=== PATIENT | female | born 1995 | race Caucasian/White ===

== ENCOUNTER → 2016-03-12 | Outpatient (CLI) | payer OTHER ==
[~2016-03-12] MED LIST: ARMO150T4 PO; CYTM25 PO; HYDR-5688 PO; LEVO125T4 PO
[2016-03-12 17:57] LABS: ALT/SGPT 24 U/L (12-78); AST/SGOT 21 U/L (15-37); BLOOD UREA NITROGEN 13 mg/dl (7-18); BUN/CREATININE RATIO 12.6 (10-20); CALCIUM 8.7 mg/dl (8.5-10.1); CARBON DIOXIDE 27 mmol/L (21-32); CHLORIDE 104 mmol/L (98-107); GLUCOSE 73 mg/dl (70-99); POTASSIUM 3.7 mmol/L (3.5-5.1); SODIUM 140 mmol/L (136-145)
[2016-03-12 17:59] LABS: ALB/GLOB RATIO 1.4 (0.9-2); ALKALINE PHOSPHATASE 44 U/L (45-117); BASO % 0.6 %; BASO ABS # 0.03 K/uL (0-0.2); COMPLETE YES; EOS % 2.8 %; HEMATOCRIT 39.5 % (37-47); LYMPH % 36.8 %; LYMPH ABS # 1.83 K/uL (1.2-3.4); MEAN CELL VOLUME 89.6 fL (80-100); MEAN CORPUSCULAR HEMOGLOBIN 30.6 pg (25-34); MEAN CORPUSCULAR HGB CONC 34.2 g/dl (32-36); MEAN PLATELET VOLUME 10.8 fL (7.4-10.4); NEUT % 53.8 %; PLATELET COUNT 175 K/uL (130-400); RED BLOOD COUNT 4.41 M/uL (4.2-5.4); WHITE BLOOD COUNT 4.97 K/uL (4.8-10.8)
[2016-03-12 18:06] LABS: PROLACTIN 25.75 ng/mL
[2016-03-14 12:21] LABS: HERPES SIMPLEX AB IGG-1 4.33; HERPES SIMPLEX AB IGG-2 0.14
[2016-03-16 11:57] LABS: CHLAMYDIA TRACH RNA*** NOT DETECTED (NOT DETECTED); GC (NEIS GONORRHOEAE)RNA** NOT DETECTED (NOT DETECTED)
== END | disposition home or self-care (01) ==
LOC: C.LABMFLN 15:59
PROVIDERS: ATTEND Family Medicine
DX: Z72.51 High risk heterosexual behavior (principal); Z86.39 Personal history of other endocrine, nutritional and metabolic disease; E89.0 Postprocedural hypothyroidism; R51 Headache; D49.7 Neoplasm of unspecified behavior of endocrine glands and other parts of nervous system

== ENCOUNTER → 2016-05-08 | Outpatient (CLI) | payer OTHER | END | disposition home or self-care (01) | LOC: C.LABMFLN 12:13 | PROVIDERS: ATTEND Internal Medicine Endocrinology, Diabetes & Metabolism | DX: E89.0 Postprocedural hypothyroidism (principal) ==

== ENCOUNTER → 2016-06-18 | Outpatient (CLI) | payer OTHER ==
[~2016-06-18] MED LIST changes: -LEVO125T4 PO; +LEVO125T5 PO
[2016-06-18 18:28] LABS: THYROID STIMULATING HORMONE 0.441 uIu/ml (0.300-4.500)
[2016-06-20 13:45] LABS: THYROGLOBULIN <0.1 NG/ML (2.8-40.9)
== END | disposition home or self-care (01) ==
LOC: C.LABMFLN 07:49
PROVIDERS: ATTEND Internal Medicine Endocrinology, Diabetes & Metabolism
DX: C73 Malignant neoplasm of thyroid gland (principal); E89.0 Postprocedural hypothyroidism; R53.83 Other fatigue; R51 Headache; N64.3 Galactorrhea not associated with childbirth; E23.6 Other disorders of pituitary gland

== ENCOUNTER → 2016-07-24 | Outpatient (CLI) | payer OTHER ==
[2016-07-24 18:26] LABS: THYROID STIMULATING HORMONE 1.12 uIu/ml (0.300-4.500)
== END | disposition home or self-care (01) ==
LOC: C.LABMFLN 14:18
PROVIDERS: ATTEND Internal Medicine Endocrinology, Diabetes & Metabolism
DX: E89.0 Postprocedural hypothyroidism (principal)

== ENCOUNTER 2016-09-22 15:37 | Emergency (ER) | payer OTHER ==
[~2016-09-22] VITALS: Ht 182.9 cm; Wt 78.0 kg
[~2016-09-22 15:37] MED LIST changes: -ARMO150T4 PO; +LEVO125T4 PO; -LEVO125T5 PO
[2016-09-22 15:42] VITALS: TEMP 36.7; Ht 182.9 cm; Wt 78.0 kg
[2016-09-22] MEDS ORDERED: ARMO150T4 PO (15:55)
[2016-09-22] MEDS ORDERED: SODIUM CHLORIDE 0.9% 1000ML 1,000 ML IV STA (16:00)
--- NOTE | 2016-09-22 16:24 | EMERGENCY ROOM VISIT NOTE ---
History Report prepared by Tiana: Clementine Goodwin Under the Supervision of: Dr. Nissa Donahue M.D. First contact with patient: 15:43 Chief Complaint: NEURO SYMPTOMS Stated Complaint: MIGRAINE,BLEEDING EYE,BLURRY VISION,BRAIN TUMOR History of Present Illness The patient is a 20 year old female who presents to the Emergency Room with complaints of an episode of neurological symptoms occurring in the middle of the night last night. The patient has a pituitary adenoma that has grown over time. Her product picker told her that it might be due to her not taking her Levoxyl for her history of thyroid cancer. She is supposed to have a repeat MRI in 5 months to see if her pituitary adenoma has grown. The patient was drinking alcohol last night. She went to sleep and woke up with what she describes as "the worst headache of my life." She had bleeding from the corner of her right eye. The patient states that she wiped the blood off with a tissue and went back to sleep. Friend at bedside reports that the patient gets bloody noses multiple times per day. Patient reports that she has been having mood swings lately that she knows are irrational or inappropriate but she "just can't help it." She has a history of depression but is not taking any medication at this time. She rates her current pain as a 4/10 in severity. Source of History: patient, friend Onset: last night Position: other (neurological) Symptom Intensity: 4/10 Timing: other (episode) Associated Symptoms: + headache Note: Pt notes bleeding from right eye and frequent bloody noses. Review of Systems See HPI for pertinent positives & negatives. A total of 10 systems reviewed and were otherwise negative. Past Medical & Surgical Medical Problems: (1) Depression (2) History of blood transfusion (3) Hx of thyroid cancer (4) Malignant neoplasm of thyroid gland (5) Parotid mass (6) Personal history of other endocrine, metabolic, and immunity disorders Surgical Problems: (1) History of hysterectomy Family History Cancer Hypertension Seizures Social History Smoking Status: Current Every Day Smoker Alcohol Use: occasionally Marital Status: in relationship Housing Status: lives with family Occupation Status: unemployed Current/Historical Medications Scheduled Levothyroxine Sodium (Levothyroxine Sodium), 175 MCG PO DAILY Scheduled PRN Armodafinil (Nuvigil), 75 MG PO DAILY PRN for PRN Allergies Coded Allergies: No Known Allergies (Unverified , 09/22/16) Physical Exam Vital Signs Date Time Temp Pulse Resp B/P (MAP) Pulse Ox O2 Delivery O2 Flow Rate FiO2 09/22/16 18:36 55 16 106/74 97 09/22/16 17:27 55 16 106/74 97 Room Air 09/22/16 15:42 36.7 53 16 119/74 97 Room Air Physical Exam Vital signs reviewed. General: Well-appearing 20 year old female, in no significant distress. HEENT: No scleral icterus, PERRLA, neck supple. Atraumatic. Cardiovascular: Regular rate and rhythm, no extra sounds. Pulmonary: Clear to auscultation bilaterally, normal work of breathing. Abdomen: Soft, nontender, nondistended, positive bowel sounds. Musculoskeletal: Atraumatic, no peripheral edema. Neurologic: Patient awake alert and oriented x 3, full strength in all 4 extremities. Cranial nerves 2 through 12 grossly intact. Skin: Warm, dry, no rash Medical Decision & Procedures ER Provider Diagnostic Interpretation: Radiology results as stated below per my review and radiologist interpretation: HEAD WITHOUT CONTRAST (CT) CT DOSE: 537.48 mGy.cm HISTORY: Headaches CHIU, pit adenoma. TECHNIQUE: Multiaxial CT images of the head were performed without the use of intravenous contrast. A dose lowering technique was utilized adhering to the principles of ALARA. Comparison: None. Findings: The paranasal sinuses and mastoid air cells are clear. The calvarium and skull base are intact. The ventricles and sulci are within normal limits. There is no mass, hematoma, midline shift, or acute infarct. Impression: No acute intracranial abnormality. The above report was generated using voice recognition software. It may contain grammatical, syntax or spelling errors. Electronically signed by: Abner Qureshi M.D. 09/22/2016 4:45 PM Dictated Date/Time: 09/22/2016 4:45 PM Laboratory Results 09/22/16 16:20 Red Blood Count 4.58, Mean Corpuscular Volume 88.9, Mean Corpuscular Hemoglobin 29.7, Mean Corpuscular Hemoglobin Concent 33.4, Mean Platelet Volume 11.2, Neutrophils (%) (Auto) 63.3, Lymphocytes (%) (Auto) 25.3, Monocytes (%) (Auto) 8.5, Eosinophils (%) (Auto) 2.2, Basophils (%) (Auto) 0.5, Neutrophils # (Auto) 4.12, Lymphocytes # (Auto) 1.64, Monocytes # (Auto) 0.55, Eosinophils # (Auto) 0.14, Basophils # (Auto) 0.03 09/22/16 16:20 Test 09/22/16 16:20 White Blood Count 6.49 K/uL (4.8-10.8) Red Blood Count 4.58 M/uL (4.2-5.4) Hemoglobin 13.6 g/dL (12.0-16.0) Hematocrit 40.7 % (37-47) Mean Corpuscular Volume 88.9 fL (80-100) Mean Corpuscular Hemoglobin 29.7 pg (25-34) Mean Corpuscular Hemoglobin Concent 33.4 g/dl (32-36) Platelet Count 185 K/uL (130-400) Mean Platelet Volume 11.2 fL (7.4-10.4) Neutrophils (%) (Auto) 63.3 % Lymphocytes (%) (Auto) 25.3 % Monocytes (%) (Auto) 8.5 % Eosinophils (%) (Auto) 2.2 % Basophils (%) (Auto) 0.5 % Neutrophils # (Auto) 4.12 K/uL (1.4-6.5) Lymphocytes # (Auto) 1.64 K/uL (1.2-3.4) Monocytes # (Auto) 0.55 K/uL (0.11-0.59) Eosinophils # (Auto) 0.14 K/uL (0-0.5) Basophils # (Auto) 0.03 K/uL (0-0.2) RDW Standard Deviation 43.8 fL (36.4-46.3) RDW Coefficient of Variation 13.4 % (11.5-14.5) Immature Granulocyte % (Auto) 0.2 % Immature Granulocyte # (Auto) 0.01 K/uL (0.00-0.02) Urine Color YELLOW Urine Appearance CLEAR (CLEAR) Urine pH 7.5 (4.5-7.5) Urine Specific [place] 1.024 (1.000-1.030) Urine Protein NEG (NEG) Urine Glucose (UA) NEG (NEG) Urine Ketones NEG (NEG) Urine Occult Blood NEG (NEG) Urine Nitrite NEG (NEG) Urine Bilirubin NEG (NEG) Urine Urobilinogen NEG (NEG) Urine Leukocyte Esterase TRACE (NEG) Urine WBC (Auto) 1-5 /hpf (0-5) Urine RBC (Auto) 0-4 /hpf (0-4) Urine Hyaline Casts (Auto) 0 /lpf (0-5) Urine Epithelial Cells (Auto) >30 /lpf (0-5) Urine Bacteria (Auto) NEG (NEG) Anion Gap 7.0 mmol/L (3-11) Est Creatinine Clear Calc Drug Dose 107.0 ml/min Estimated GFR () 98.0 Estimated GFR (Non- 84.5 BUN/Creatinine Ratio 12.1 (10-20) Calcium Level 8.7 mg/dl (8.5-10.1) Magnesium Level 2.3 mg/dl (1.8-2.4) Total Bilirubin 0.5 mg/dl (0.2-1) Direct Bilirubin < 0.1 mg/dl (0-0.2) Aspartate Amino Transf (AST/SGOT) 18 U/L (15-37) Alanine Aminotransferase (ALT/SGPT) 23 U/L (12-78) Alkaline Phosphatase 47 U/L (45-117) Total Protein 7.8 gm/dl (6.4-8.2) Albumin 4.2 gm/dl (3.4-5.0) Thyroid Stimulating Hormone (TSH) 75.100 uIu/ml (0.300-4.500) Free Thyroxine 0.73 ng/dl (0.80-1.60) Free Triiodothyronine 1.88 pg/ml (2.30-4.20) Laboratory results per my review. Medications Administered Medications (Trade) Dose Ordered Sig/Marin Route Start Time Stop Time Status Last Admin Dose Admin Sodium Chloride 1,000 ml @ 999 mls/hr Q1H1M STAT IV 09/22/16 16:00 09/22/16 17:00 DC 09/22/16 16:30 999 MLS/HR ED Course 1543: Past medical records reviewed. The patient was evaluated in room C1B. A complete history and physical examination was performed. 1600: NSS 1000 ml @ 999 mls/hr IV 1830: I reassessed the patient at this time. She is feeling better and resting comfortably. I discussed the results and treatment plan with the patient. I answered all pertaining questions that she had. She expressed understanding and verbalized agreement. The patient will be discharged home. Medical Decision Differential diagnoses includes thrombocytopenia, eye trauma, subconjunctival hemorrhage, foreign body, intracranial hemorrhage, intracranial mass, metabolic abnormality, medication non-compliance, substance abuse. This patient was evaluated and appeared to be in no significant distress. IV access was obtained and laboratory work was drawn. The patient was placed on the school lunch monitor and found to be in a normal sinus rhythm. Head CT was obtained and is negative for acute intracranial abnormality. Patient's laboratory work reveals a TSH of 75. Free T3 and free T4 were added and are pending. The patient admits she has not been taking her thyroid medication as prescribed, she takes that once weekly, the entire weekly dose at once. The patient was strongly advised to take her medication as prescribed, once daily. She was advised to stop smoking and stop vaping. Patient was reassured regarding her findings. She was concerned about the IV bleeding however there is no eye injection, hemorrhage or irritation appreciated. There is no scratch noted to the eyelids. Patient's blood counts are normal. She was referred to an manager environmental if symptoms recur. She will return to the ER for worsening of symptoms or any medical concerns. Medication Reconcilliation Current Medication List: was personally reviewed by me Blood Pressure Screening Patient's blood pressure: Normal blood pressure Impression Primary Impression: Hypothyroidism Scribe Attestation The scribe's documentation has been prepared under my direction and personally reviewed by me in its entirety. I confirm that the note above accurately reflects all work, treatment, procedures, and medical decision making performed by me. Departure Information Dispostion Home / Self-Care Referrals Lillian Willoughby (PCP) Forms HOME CARE DOCUMENTATION FORM, IMPORTANT VISIT INFORMATION, WORK / SCHOOL INSTRUCTIONS Patient Instructions [facility] [employer] Additional Instructions Diagnosis: Hypothyroidism Please take your thyroid medication daily as prescribed. Stop smoking. Drink plenty of water, avoid excessive caffeine and alcohol. Follow-up with your primary care physician for reevaluation. Follow-up with your product picker for further management of your thyroid dysfunction. If your eye continues to bleed periodically, please see full eye evaluation by an manager environmental. Return to the emergency department for worsening of symptoms or any medical concerns. Problem Qualifiers Primary Impression: Hypothyroidism Hypothyroidism type: unspecified Qualified Codes: E03.9 - Hypothyroidism, unspecified
[2016-09-22 16:36] LABS: BASO % 0.5 %; BASO ABS # 0.03 K/uL (0-0.2); COMPLETE YES; EOS % 2.2 %; HEMATOCRIT 40.7 % (37-47); IG% 0.2 %; LYMPH % 25.3 %; LYMPH ABS # 1.64 K/uL (1.2-3.4); MEAN CELL VOLUME 88.9 fL (80-100); MEAN CORPUSCULAR HEMOGLOBIN 29.7 pg (25-34); MEAN CORPUSCULAR HGB CONC 33.4 g/dl (32-36); MEAN PLATELET VOLUME 11.2 fL (7.4-10.4); MONO % 8.5 %; NEUT % 63.3 %; PLATELET COUNT 185 K/uL (130-400); RED BLOOD COUNT 4.58 M/uL (4.2-5.4); WHITE BLOOD COUNT 6.49 K/uL (4.8-10.8)
[2016-09-22 16:42] LABS: MANUAL MICROSCOPIC REQUIRED? NO; REVIEW REQ? NO; URINE APPEARANCE CLEAR (CLEAR); URINE BILIRUBIN NEG (NEG); URINE COLOR YELLOW; URINE EPITHELIAL CELL AUTO >30 /lpf (0-5); URINE NITRITE NEG (NEG); URINE PH 7.5 (4.5-7.5); URINE SPECIFIC GRAVITY 1.024 (1.000-1.030); UROBILINOGEN NEG (NEG); ZZUR CULT IF INDIC CLEAN CATCH NO
--- NOTE | 2016-09-22 16:47 | DIAGNOSTIC IMAGING REPORT ---
HEAD WITHOUT CONTRAST (CT) CT DOSE: 537.48 mGy.cm HISTORY: Headaches CHIU, pit adenoma. TECHNIQUE: Multiaxial CT images of the head were performed without the use of intravenous contrast. A dose lowering technique was utilized adhering to the principles of ALARA. Comparison: None. Findings: The paranasal sinuses and mastoid air cells are clear. The calvarium and skull base are intact. The ventricles and sulci are within normal limits. There is no mass, hematoma, midline shift, or acute infarct. Impression: No acute intracranial abnormality. The above report was generated using voice recognition software. It may contain grammatical, syntax or spelling errors. Electronically signed by: Abner Qureshi M.D. 09/22/2016 4:45 PM Dictated Date/Time: 09/22/2016 4:45 PM
[2016-09-22 16:55] LABS: ALT/SGPT 23 U/L (12-78); BLOOD UREA NITROGEN 12 mg/dl (7-18); BUN/CREATININE RATIO 12.1 (10-20); CALCIUM 8.7 mg/dl (8.5-10.1); CARBON DIOXIDE 25 mmol/L (21-32); CHLORIDE 109 mmol/L (98-107); CREATININE 0.96 mg/dl (0.60-1.20); GLUCOSE 81 mg/dl (70-99); MAGNESIUM 2.3 mg/dl (1.8-2.4); POTASSIUM 3.6 mmol/L (3.5-5.1); SODIUM 141 mmol/L (136-145)
[2016-09-22 17:06] LABS: ALKALINE PHOSPHATASE 47 U/L (45-117); AST/SGOT 18 U/L (15-37)
[2016-09-22 18:36] VITALS: BP 106/74; PULSE 55; O2SAT 97
== END 2016-09-22 18:36 | disposition home or self-care (01) ==
LOC: C.EDB 15:40 → C.EDC 18:36
DX: E03.9 Hypothyroidism, unspecified (principal); D35.2 Benign neoplasm of pituitary gland; Z85.850 Personal history of malignant neoplasm of thyroid; F32.9 Major depressive disorder, single episode, unspecified; Z90.710 Acquired absence of both cervix and uterus; Z80.9 Family history of malignant neoplasm, unspecified; Z82.49 Family history of ischemic heart disease and other diseases of the circulatory system; Z82.0 Family history of epilepsy and other diseases of the nervous system; F17.210 Nicotine dependence, cigarettes, uncomplicated; Z79.899 Other long term (current) drug therapy

== ENCOUNTER → 2016-12-29 | Outpatient (CLI) | payer OTHER ==
[~2016-12-29] MED LIST changes: +ARMO150T4 PO; -CYTM25 PO; -HYDR-5688 PO; -LEVO125T4 PO; +LEVO125T5 PO
[2017-01-01 00:09] LABS: CHLAMYDIA TRACH RNA*** NOT DETECTED (NOT DETECTED); GC (NEIS GONORRHOEAE)RNA** NOT DETECTED (NOT DETECTED)
== END | disposition home or self-care (01) ==
LOC: C.LABSPEC 17:53
PROVIDERS: ATTEND Physician Assistant
DX: N93.9 Abnormal uterine and vaginal bleeding, unspecified (principal); R10.2 Pelvic and perineal pain

== ENCOUNTER → 2016-12-29 | Outpatient (CLI) | payer OTHER | END | disposition home or self-care (01) | LOC: C.PAPS 18:14 | PROVIDERS: ATTEND Physician Assistant | DX: R10.2 Pelvic and perineal pain (principal); N93.9 Abnormal uterine and vaginal bleeding, unspecified ==

== ENCOUNTER → 2017-05-18 | Outpatient (CLI) | payer OTHER | END | disposition home or self-care (01) | LOC: C.LABMFLN 09:25 | PROVIDERS: ATTEND Internal Medicine Endocrinology, Diabetes & Metabolism | DX: E89.0 Postprocedural hypothyroidism (principal) ==

== ENCOUNTER 2017-09-16 20:43 | Emergency (ER) | payer OTHER ==
[~2017-09-16] VITALS: Ht 182.9 cm; Wt 73.8 kg
[2017-09-16 20:45] VITALS: TEMP 36.7; Ht 182.9 cm; Wt 73.8 kg
[2017-09-16 21:05] VITALS: O2SAT 97
[2017-09-16] MEDS ORDERED: BENZONATATE 100MG CAP PO ONE (21:30)
[2017-09-16] MEDS ORDERED: ALBUTEROL HFA 8 GM INHALER INH ONE (21:30)
[2017-09-16] MEDS ORDERED: LEVO175T3 PO (21:33)
--- NOTE | 2017-09-16 21:48 | DIAGNOSTIC IMAGING REPORT ---
CHEST 2 VIEWS ROUTINE CLINICAL HISTORY: Cough, shortness of breath. COMPARISON STUDY: No previous studies for comparison. FINDINGS: The cardiac and mediastinal contours are normal. There is no evidence of focal pulmonary consolidation. There is no evidence of failure. No pleural effusions are visualized.[ There is a thoracolumbar scoliosis. IMPRESSION: No active disease in the chest. Electronically signed by: Giuseppe Ayers M.D. 09/16/2017 9:46 PM Dictated Date/Time: 09/16/2017 9:46 PM
[2017-09-16] MEDS ORDERED: BENZ100C18 PO (22:18)
[2017-09-16 22:32] VITALS: BP 113/75; PULSE 73; O2SAT 100
--- NOTE | 2017-09-16 22:47 | EMERGENCY ROOM VISIT NOTE ---
History Report prepared by Tiana: Keisha Parikh Under the Supervision of: Dr. Feliz Cooper M.D. First contact with patient: 21:07 Chief Complaint: RESPIRATORY PROBLEMS Stated Complaint: DIFFICULTY BREATHING, COUGHING History of Present Illness The patient is a 21 year old female who presents to the Emergency Room with complaints of intermittent episodes of coughing beginning 4 days ago. She notes she is coughing up some mucus, but no blood. The patient notes she had one episode of coughing a few weeks ago, which resolved after she drank something, and she did not start coughing again until 4 days ago. She notes throat pain that worsens with swallowing, making it difficult to eat. The patient denies SOB , abdominal pain, nausea, or vomiting. She states she is experiencing some CP following coughing episodes. The patient reports she has chronic headaches due to a pituitary adenoma. Source of History: patient Onset: 4 days ago Position: throat Quality: other (coughing) Timing: intermittent, other (episodic) Associated Symptoms: + chest pain (after coughing), No SOB, No nausea, No vomiting, No abdominal pain Note: Associated symptom: intermittent loss of voice Review of Systems See HPI for pertinent positives and negatives. A total of ten systems were reviewed and were otherwise negative. Past Medical & Surgical Medical Problems: (1) Depression (2) History of blood transfusion (3) Hx of thyroid cancer (4) Malignant neoplasm of thyroid gland (5) Parotid mass (6) Personal history of other endocrine, metabolic, and immunity disorders Surgical Problems: (1) History of hysterectomy Family History Cancer Hypertension Seizures Social History Smoking Status: Current Some Day Smoker (vape) Smokeless Tobacco Use: No Alcohol Use: occasionally Marital Status: in relationship Housing Status: lives with family Occupation Status: employed Current/Historical Medications Scheduled Levothyroxine Sodium (Levothyroxine Sodium), 175 MG PO DAILY Scheduled PRN Armodafinil (Nuvigil), 75 MG PO DAILY PRN for Narcolepsey Benzonatate (Tessalon Perles), 1 CAP PO TID PRN for Cough Allergies Coded Allergies: No Known Allergies (Unverified , 09/22/16) Physical Exam Vital Signs Date Time Temp Pulse Resp B/P (MAP) Pulse Ox O2 Delivery O2 Flow Rate FiO2 09/16/17 22:32 73 16 113/75 100 Room Air 09/16/17 21:07 75 8/1/18 21:05 97 Room Air 09/16/17 21:05 68 20 101/74 98 Room Air 09/16/17 20:45 36.7 97 20 99 Room Air Physical Exam GENERAL: Awake, alert, well-appearing, in no distress HENT: Normocephalic, atraumatic. Oropharynx unremarkable. No significant pharyngeal erythema or exudate. Uvula midline. No CITY MAGISTRATE noted. EYES: Normal conjunctiva. Sclera non-icteric. NECK: Supple. No nuchal rigidity. RESPIRATORY: Clear to auscultation. No wheezes. Normal respiratory effort. CARDIAC: Normal rate. Normal rhythm. Extremities warm and well perfused. GI: Soft, non-distended. No tenderness to palpation. No rebound or guarding. RECTAL: Deferred. MUSCULOSKELETAL: Atraumatic. Chest examination reveals no tenderness. LOWER EXTREMITIES: Calves are equal size bilaterally and non-tender. No edema NEURO: Normal sensorium. No sensory or motor deficits noted. No facial droop. SKIN: Warm and dry. No rash or jaundice noted. Medical Decision & Procedures ER Provider Diagnostic Interpretation: Radiology results as stated below per my review and radiologist interpretation: CHEST 2 VIEWS ROUTINE CLINICAL HISTORY: Cough, shortness of breath. COMPARISON STUDY: No previous studies for comparison. FINDINGS: The cardiac and mediastinal contours are normal. There is no evidence of focal pulmonary consolidation. There is no evidence of failure. No pleural effusions are visualized.[ There is a thoracolumbar scoliosis. IMPRESSION: No active disease in the chest. Electronically signed by: Giuseppe Ayers M.D. 09/16/2017 9:46 PM Dictated Date/Time: 09/16/2017 9:46 PM Laboratory Results Test 09/16/17 21:25 Monoscreen NEG (NEG) Medications Administered Medications (Trade) Dose Ordered Sig/Marin Route Start Time Stop Time Status Last Admin Dose Admin Albuterol (Ventolin Hfa Inhaler) 2 puffs NOW ONCE INH 09/16/17 21:30 09/16/17 21:31 DC 09/16/17 21:25 2 PUFFS Benzonatate (Tessalon Perles Cap) 100 mg NOW ONCE PO 09/16/17 21:30 09/16/17 21:31 DC 09/16/17 21:24 100 MG ED Course 2107: The patient was evaluated in room C5. A complete history and physical exam was performed. 2129: Ordered Benzonatate 100 mg PO, Albuterol 2 puffs INH. 2212: I reevaluated the patient. Discussed results and discharge instructions: she verbalized understanding and agreement. The patient is ready for discharge. Medical Decision Etiologies such as pneumonia, meningitis, GERD, allergic reaction, CITY MAGISTRATE, neck space infection, post-nasal drip, among other were entertained. Patient presents complaining of cough initially 2 weeks ago and then for the past 4 days consistently throughout the day. Slightly short of breath but PERC negative. Denies fevers. Some sore throat. No history of similar. Patient does vapor. No history of asthma reported. Well-appearing without evidence of peritonsillar abscess. Benign neck exam. Lungs are clear. X-ray to exclude pneumonia was sent along with strep and mono testing. X-ray unremarkable. Rapid strep negative given Tessalon Perles and albuterol with symptoms. Advised if continued would recommend PCP follow up. Medication Reconcilliation Current Medication List: was personally reviewed by me Blood Pressure Screening Patient's blood pressure: Normal blood pressure Blood pressure disposition: Did not require urgent referral Impression Primary Impression: Cough Scribe Attestation The scribe's documentation has been prepared under my direction and personally reviewed by me in its entirety. I confirm that the note above accurately reflects all work, treatment, procedures, and medical decision making performed by me. Departure Information Dispostion Home / Self-Care Prescriptions Benzonatate (TESSALON PERLES) 100 Mg Cap 1 CAP PO TID Y for Cough for 7 Days, #21 CAP Prov: Feliz Cooper M.D. 09/16/17 Referrals Lillian Willoughby (PCP) Forms HOME CARE DOCUMENTATION FORM, IMPORTANT VISIT INFORMATION, WORK / SCHOOL INSTRUCTIONS Patient Instructions My [facility] Additional Instructions Please utilize the inhaler and the tessalon pearls to help with your cough symptoms. Maintain hydration. Vaping is likely not helpful for your cough. If you have continued symptoms recommend outpatient follow-up with your regular doctor in the next week.
== END 2017-09-16 22:37 | disposition home or self-care (01) ==
LOC: C.EDB 20:44 → C.EDC 22:37
DX: R05 Cough (principal); R07.0 Pain in throat; Z72.0 Tobacco use; Z85.850 Personal history of malignant neoplasm of thyroid